=== PATIENT | female | born 1990 | race Caucasian/White ===

== ENCOUNTER → 2020-05-28 17:12 | Outpatient (BNVA) | payer BC, SELFPAY | PROVIDERS: Family Provider Nurse Practitioner Family; PCP Nurse Practitioner Family; Visit Provider Nurse Practitioner Family | DX: R53.83 Other fatigue (principal); Z13.6 Encounter for screening for cardiovascular disorders; Z79.899 Other long term (current) drug therapy | CPT/HCPCS: 80053; 80061; 82306; 82607; 83735; 84439; 84443; 84481; 85025 ==

== ENCOUNTER → 2021-01-31 11:52 | Outpatient (BNVA) | payer BC, SELFPAY | PROVIDERS: Family Provider Nurse Practitioner Family; PCP Nurse Practitioner Family; Visit Provider Nurse Practitioner Family | DX: J30.81 Allergic rhinitis due to animal (cat) (dog) hair and dander (principal); R42 Dizziness and giddiness; Z20.822 Contact with and (suspected) exposure to COVID-19 | CPT/HCPCS: 87635 ==

== ENCOUNTER → 2021-06-14 11:55 | Outpatient (BNVA) | payer BC, SELFPAY | PROVIDERS: Family Provider Nurse Practitioner Family; PCP Nurse Practitioner Family; Visit Provider Nurse Practitioner Family | DX: F41.9 Anxiety disorder, unspecified (principal); F32.A Depression, unspecified; Z13.6 Encounter for screening for cardiovascular disorders; Z68.42 Body mass index [BMI] 45.0-49.9, adult | CPT/HCPCS: 80053; 80061; 82306; 82607; 84443; 85025 ==

== ENCOUNTER → 2021-11-13 16:44 | Outpatient (BNVA) | payer BC, SELFPAY | PROVIDERS: Family Provider Nurse Practitioner Family; PCP Nurse Practitioner Family; Visit Provider Nurse Practitioner Family | DX: F41.9 Anxiety disorder, unspecified (principal); F32.A Depression, unspecified; R42 Dizziness and giddiness; E55.9 Vitamin D deficiency, unspecified | CPT/HCPCS: 80053; 82306; 82607; 83036; 83735; 84439; 84443; 85025 ==

== ENCOUNTER → 2022-07-28 09:53 | Outpatient (BNVA) | payer BC, MEDICAID, SELFPAY | PROVIDERS: Family Provider Nurse Practitioner Family; PCP Nurse Practitioner Family; Visit Provider Nurse Practitioner Family | DX: F41.9 Anxiety disorder, unspecified (principal); F32.A Depression, unspecified; Z13.6 Encounter for screening for cardiovascular disorders; Z71.3 Dietary counseling and surveillance; E55.9 Vitamin D deficiency, unspecified | CPT/HCPCS: 80053; 80061; 82306; 82607; 83036; 84443; 85025 ==

== ENCOUNTER → 2023-01-14 16:25 | Outpatient (BNVA) | payer BC, MEDICAID, SELFPAY | PROVIDERS: Family Provider Nurse Practitioner Family; PCP Nurse Practitioner Family; Visit Provider Nurse Practitioner Family | DX: N39.0 Urinary tract infection, site not specified (principal) | CPT/HCPCS: 81000; 81003; 87086 ==

== ENCOUNTER → 2023-01-27 14:14 | Outpatient (BNVA) | payer BC, MEDICAID, SELFPAY | PROVIDERS: Family Provider Nurse Practitioner Family; PCP Nurse Practitioner Family; Visit Provider Nurse Practitioner Family | DX: R42 Dizziness and giddiness (principal); F41.9 Anxiety disorder, unspecified; F32.A Depression, unspecified | CPT/HCPCS: 80053; 81000 ==

== ENCOUNTER → 2023-04-07 16:31 | Outpatient (BNVA) | payer BC, MEDICAID, SELFPAY | PROVIDERS: Family Provider Nurse Practitioner Family; PCP Nurse Practitioner Family; Visit Provider Nurse Practitioner Family | DX: N93.9 Abnormal uterine and vaginal bleeding, unspecified (principal); E55.9 Vitamin D deficiency, unspecified; F32.A Depression, unspecified; F41.9 Anxiety disorder, unspecified; R10.2 Pelvic and perineal pain | CPT/HCPCS: 80053; 81003; 81025; 82306; 82607; 82670; 83001; 83002; 84144; 84146; 84443; 85025 ==

== ENCOUNTER 2023-04-15 09:23 | Outpatient (CLI) | payer BC, MEDICAID, SELFPAY ==
--- NOTE | 2023-04-15 09:15 | US_ITS ---
WS: [id number] US pelv w/transvag [id number] HISTORY: R10.2 - Pelvic and perineal pain COMPARISON: None available. Uterus: 9.8 cm x 6.2 cm x 4.9 cm. Normal size anteverted uterus. No fibroid or mass. Endometrium: 0.7 cm. Normal homogeneity. Right ovary: 2.4 cm x 1.6 cm x 2.7 cm. Normal size and limited vascularity, no cystic or solid masses . Vascularity is limited secondary to position of the ovary. Left ovary: 2.6 cm x 1.9 cm x 2.6 cm. Normal size and limited vascularity, no cystic or solid masses. Vascularity is limited secondary to position of the ovary. No free fluid in the cul-de-sac. IMPRESSION: Normal transvaginal and transabdominal pelvic ultrasound.
== END 2023-04-15 09:24 | disposition home or self-care (01) ==
PROVIDERS: PCP Nurse Practitioner Family; Visit Provider Nurse Practitioner Family
DX: R10.2 Pelvic and perineal pain (principal)
CPT/HCPCS: 76830; 76856

== ENCOUNTER 2023-05-28 15:57 | Outpatient (CLI) | payer BC, MEDICAID, SELFPAY ==
--- NOTE | 2023-05-28 16:00 | MR_ITS ---
WS: [id number] MRI BRAIN WITH AND WITHOUT CONTRAST HISTORY: G43.909 - Migraine, unspecified, not intractable, without... COMPARISON: None available. TECHNIQUE: Multiplanar imaging performed through the brain with MultiHance ml's IV. No acute infarcts are seen. Staples-white matter differentiation is well preserved. No susceptibility artifacts or prior lacunar infarcts. Ventricles and extra-axial spaces are normal. Clivus and pituitary gland are normal. Visualized posterior fossa and brainstem are also normal. Postcontrast images are negative for masses or vascular malformations. Dural venous sinuses are normal. Paranasal sinuses: Well aerated with no significant disease. Mastoid air cells: Normal. Calvarium and scalp: Normal. IMPRESSION: 1. Normal MRI brain with contrast. 2. No prior infarcts or ischemia. No enhancing masses or vascular malformations.
[2023-05-28] MEDS: gadobenate dimeglumine 20 mL vial IV (16:52)
== END 2023-05-28 15:58 | disposition home or self-care (01) ==
PROVIDERS: PCP Nurse Practitioner Family; Visit Provider Nurse Practitioner Family
DX: G43.909 Migraine, unspecified, not intractable, without status migrainosus (principal); R20.2 Paresthesia of skin
CPT/HCPCS: 70553; A9577

== ENCOUNTER 2024-01-18 12:41 | Emergency (ER) | payer BC, MEDICAID, SELFPAY ==
[2024-01-18 13:36] VITALS: BP 148/91; PULSE 73; RESP 16; TEMP 36.7; O2SAT 98
--- NOTE | 2024-01-18 13:43 | ECG_ITS ---
[facility] Test Date: 2024-01-18 Pat Name: Michelle Howard Department: Room: Gender: Female Staffing Branch Manager: : 1990 Requested By: Fay Muhammad Order Number: [id number] Potts MD: Chip Belcher M.D. Measurements Intervals [place] Rate: 67 P: 46 WA: 184 QRS: 12 QRSD: 101 T: 23 QT: 415 QTc: 440 Interpretive Statements SINUS RHYTHM INCOMPLETE RIGHT BUNDLE BRANCH BLOCK [90+ ms QRS DURATION, TERMINAL R IN V1/V2, 40+ ms S IN I/aVL/V4/V5/V6] No previous ECG available for comparison Electronically Signed On 01-18-2024 14:35:20 CDT by Chip Belcher M.D. [id number]
[2024-01-18 14:11] LABS: Basophils % 0.7 %; Eosinophils # 0.1 10^3/uL (0.0-0.8); Eosinophils % 2.1 %; Hematocrit 34.5 % (36-47); Lymphocytes # 2.2 10^3/uL (0.8-4.8); Lymphocytes % 39.1 %; Mean Corpuscular Hemoglobin 26.8 pg (27-33); Mean Corpuscular Volume 86.5 fl (85-98); Mean Platelet Volume 9.9 fL (7.4-10.4); Monocytes # 0.3 10^3/uL (0.2-0.9); Monocytes % 5.1 %; Neutrophils # 2.98 10^3/uL (1.8-7.7); Neutrophils % 52.8 %; Nucleated Red Blood Cells % 0 %; Platelet Count 239 10^3/cmm (157-399); Red Blood Count 3.99 10^6/uL (3.85-5.65); Red Cell Distribution Width 14.8 % (12.1-15.1); White Blood Count 5.65 10^3/uL (3.29-11.43)
[2024-01-18 14:27] VITALS: BP 127/78; PULSE 69; RESP 16; TEMP 36.7; O2SAT 98
[2024-01-18 14:32] LABS: HCG, Serum Qual Negative (Negative)
[2024-01-18 14:34] LABS: Alanine Aminotransferase 21 U/L (0-33); Alkaline Phosphatase 71 U/L (35-105); Aspartate Amino Transferase 23 U/L (0-32); Blood Urea Nitrogen 11 mg/dL (6-20); Calcium 9.2 mg/dL (8.5-10.5); Carbon Dioxide 26 mmol/L (22-29); Chloride 101 mmol/L (98-107); Creatinine Clr Calc Pharmacy 168.9793; Globulin 3.5 g/dL (1.3-4.6); Glomerular Filtration Rate 96.4 mL/min (90-130); Glucose 106 mg/dL (65-115); Osmolality Calculated 284 mOsm/kg (285-295); Sodium 137 mmol/L (136-145); Total Bilirubin 0.3 mg/dL (0.15-1.2); Total Protein 7.5 g/dL (6.6-8.7)
[2024-01-18 14:35] LABS: Anion Gap 14.3 (5-19); Potassium 4.3 mmol/L (3.5-5.1)
[2024-01-18 16:30] VITALS: BP 141/78; PULSE 64; O2SAT 100
--- NOTE | 2024-01-18 16:36 | ED_ITS ---
HPI - Dizziness 2 General: Chief Complaint: Dizziness Stated Complaint: dizzy, light headed, headache Time Seen by Provider: 01/18/24 16:27 Source: patient Mode of arrival: ambulatory Limitations: no limitations History of Present Illness: HPI Narrative: 33-year-old female states that she been having some bilateral ear pain mainly the left ear over the last 2 weeks she just finished an antibiotic states that she is also had dizziness and headaches for the last 2 years states that today she had a period of some dizziness felt like the room spinning states typically goes away with a nap but had not today. States her headache is mild in nature she had an MRI last May for this that was negative she denies any vomiting denies any worsening proving factors Associated symptoms: Reports headache(s); Denies chest pain, chills, nausea or vomiting Review of Systems 2 Const: Denies: fever(s), chills, body aches or change in appetite Eyes: Denies: blurry vision or eye discomfort ENMT: Denies: throat pain or dental pain Card: Denies: chest pain Resp: Denies: dyspnea GI: Denies: abdominal pain, nausea, vomiting or diarrhea Musc: Denies: neck pain or back pain Skin/Breast: Denies: rash Neuro: Reports: headache(s) and dizziness PFSH ED 2 PFSH: Medical History Anxiety and depression Asthma Surgical History Hx of cholecystectomy Hx of colonoscopy Hx of wisdom tooth extraction Family History Father Diabetes CAD (coronary artery disease) Mother AAA (abdominal aortic aneurysm) Social History Smoking and tobacco/nicotine status: never used tobacco/nicotine Second hand smoke exposure: No Alcohol intake: never Substance/Drug Use: unknown Adopted: No Caregiver/support person: No Lives independently: Yes Household members: spouse and children Marital status: service: No Current occupational status: employed and unemployed Current occupation: [employer] Do you think of yourself as: Straight/Heterosexual Current gender identity: Female Physical Exam 2 Const: COMMON NORMALS: no acute distress, patient oriented x3 and healthy appearing HENMT: COMMON NORMALS: normocephalic and atraumatic HEAD & SCALP: n ormocephalic and atraumatic Eye: COMMON NORMALS: Equal, round and reactive pupils present and EOMs intact bilaterally PUPIL: Yes Equal, round and reactive pupils present OTHER: No nystagmus looking straight ahead or when she looks right or left Neck/C-Spine: COMMON NORMALS: full ROM and supple Chest: COMMONS NORMALS: normal inspection of the chest Resp: COMMON NORMALS: normal respiratory effort, No retractions, No use of accessory muscles and clear to auscultation bilaterally AUSCULTATION: clear to auscultation bilaterally Cardio: COMMON NORMALS: regular rate, regular rhythm and No murmurs present (Cardio) RATE: regular rate RHYTHM: regular rhythm Extremity: COMMON NORMALS: normal to inspection and full ROM Neuro: COMMON NORMALS: patient oriented x3, moves all extremities and no focal motor deficits Psych: COMMON NORMALS: mental status grossly normal, Normal thought process present and cooperative THOUGHT PROCESS: Normal thought process present Skin: COMMON NORMALS: no rashes or lesions noted and no wounds GENERAL SKIN EXAM: no rashes or lesions noted Course 2 Vital Signs: Vital signs: Vital Signs Temperature 98.1 F 01/18/24 14:27 Pulse Rate 64 01/18/24 16:30 Respiratory Rate 16 01/18/24 14:27 Blood Pressure 141/78 01/18/24 16:30 Pulse Oximetry 100 01/18/24 16:30 Oxygen Delivery Me thod Room Air 01/18/24 16:30 MDM - Dizziness Medical Decision Making Patient presents with headache along with dizziness been acute on chronic she is well-appearing here she feels much improved after Toradol and meclizine she is able to ambulate without difficulty she has no signs of a stroke we will prescribe her meclizine for home she is follow-up with PCP she is return if worsening she understands agrees to plan. Lab Data 01/18/24 13:39 01/18/24 13:39 Laboratory Results WBC 5.65 10^3/uL (3.29-11.43) 01/18/24 13:39 RBC 3.99 10^6/uL (3.85-5.65) 01/18/24 13:39 Hgb 10.70 g/dL (11.27-16.99) L 01/18/24 13:39 Hct 34.5 % (36-47) L 01/18/24 13:39 MCV 86.5 fl (85-98) 01/18/24 13:39 MCH 26.8 pg (27-33) L 01/18/24 13:39 MCHC 31.0 g/dL (30-55) 01/18/24 13:39 RDW 14.8 % (12.1-15.1) 01/18/24 13:39 Plt Count 239 10^3/cmm (157-399) 01/18/24 13:39 MPV 9.9 fL (7.4-10.4) 01/18/24 13:39 Neut % (Auto) 52.8 % 01/18/24 13:39 Lymph % (Auto) 39.1 % 01/18/24 13:39 Bullitt % (Auto) 5.1 % 01/18/24 13:39 Eos % (Auto) 2.1 % 01/18/24 13:39 Baso % (Auto) 0.7 % 01/18/24 13:39 Neut # (Auto) 2.98 10^3/uL (1.8-7.7) 01/18/24 13:39 Lymph # (Auto) 2.2 10^3/uL (0.8-4.8) 01/18/24 13:39 Bullitt # (Auto) 0.3 10^3/uL (0.2-0.9) 01/18/24 13:39 Eos # (Auto) 0.1 10^3/uL (0.0-0.8) 01/18/24 13:39 Baso # (Auto) 0.0 10^3/uL (0.0-0.1) 01/18/24 13:39 Nucleated RBC % (auto) 0 % 01/18/24 13:39 Nucleated RBCs # 0.0 /100WBC 01/18/24 13:39 Sodium 137 mmol/L (136-145) 01/18/24 13:39 Potassium 4.3 mmol/L (3.5-5.1) 01/18/24 13:39 Chloride 101 mmol/L (98-107) 01/18/24 13:39 Carbon Dioxide 26 mmol/L (22-29) 01/18/24 13:39 Anion Gap 14.3 (5-19) 01/18/24 13:39 BUN 11 mg/dL (6-20) 01/18/24 13:39 Creatinine 0.7 mg/dL (0.5-0.9) 01/18/24 13:39 GFR Calculation 96.4 mL/min (90-130) 01/18/24 13:39 Glucose 106 mg/dL (65-115) 01/18/24 13:39 Calculated Osmolality 284 mOsm/kg (285-295) L 01/18/24 13:39 Calcium 9.2 mg/dL (8.5-10.5) 01/18/24 13:39 Total Bilirubin 0.3 mg/dL (0.15-1.2) 01/18/24 13:39 AST 23 U/L (0-32) 01/18/24 13:39 ALT 21 U/L (0-33) 01/18/24 13:39 Alkaline Phosphatase 71 U/L (35-105) 01/18/24 13:39 Total Protein 7.5 g/dL (6.6-8.7) 01/18/24 13:39 Albumin 4.0 g/dL (3.5-5.2) 01/18/24 13:39 Globulin 3.5 g/dL (1.3-4.6) 01/18/24 13:39 HCG, Qual Negative (Negative) 01/18/24 13:39 No radiology studies performed this visit Discharge Plan Discharge Patient Disposition: Home Clinical Impression: Dizziness, Headache Condition: Stable Prescriptions: New meclizine 50 mg tablet 50 mg PO BID PRN (Reason: dizziness) Qty: 20 0RF No Action aripiprazole [Abilify] 2 mg tablet 2 mg PO DAILY Qty: 30 0RF cefdinir 300 mg capsule 300 mg PO BID 10 Days Qty: 20 0RF cholecalciferol (vitamin D3) 1,250 mcg (50,000 unit) capsule 50,000 unit PO .weekly Qty: 4 2RF escitalopram oxalate 20 mg tablet See Rx Instructions .ROUTE .COMPLEX Qty: 30 5RF Dose Instruction: Take 1 tablet by mouth once daily Rx Instructions: Take 1 tablet by mouth once daily Discharge Orders: Discharge ED (Routine); Ordered 01/18/24 Ordered By: Pau Goldman Referrals: Linda Ugarte FNP [Primary Care Provider] - 4-7 days Discharge Diet: Advance as tolerated Discharge Activity: Resume usual activity Patient Instructions: Dizziness (ED), General Headache (ED) Coding Level of Care Code ED Transport Technician for Dalia Culver
[2024-01-18] MEDS: meclizine 25 mg tablet 50 MG PO (16:57)
[2024-01-18] MEDS: sodium chloride 0.9% 1,000 ML 999 ML IV (16:57)
[2024-01-18] MEDS: ketorolac 30 mg/mL INJ IVP (16:58)
[2024-01-18 18:02] VITALS: BP 121/79; PULSE 61; O2SAT 100
== END 2024-01-18 18:03 | disposition home or self-care (01) ==
PROVIDERS: Emergency Provider Emergency Medicine; PCP Nurse Practitioner Family
DX: R42 Dizziness and giddiness (principal); R51.9 Headache, unspecified
CPT/HCPCS: 36415; 80053; 84703; 85025; 93005; 96374; 99284; J1885; J7030; J8597

== ENCOUNTER → 2024-01-20 09:19 | Outpatient (BNVA) | payer BC, MEDICAID, SELFPAY | PROVIDERS: PCP Nurse Practitioner Family; Visit Provider Nurse Practitioner Family | DX: R00.2 Palpitations (principal); R42 Dizziness and giddiness; Z13.6 Encounter for screening for cardiovascular disorders; E55.9 Vitamin D deficiency, unspecified | CPT/HCPCS: 80061; 82306; 83036; 83735; 84443; 86003; 86008 ==

== ENCOUNTER → 2024-02-15 15:52 | Outpatient (BNVA) | payer BC, MEDICAID, SELFPAY | PROVIDERS: PCP Nurse Practitioner Family; Visit Provider Nurse Practitioner Family | DX: R30.0 Dysuria (principal) | CPT/HCPCS: 81000 ==

== ENCOUNTER → 2024-10-20 13:02 | Outpatient (BNVA) | payer BC, MEDICAID, SELFPAY | PROVIDERS: PCP Nurse Practitioner Family; Visit Provider Nurse Practitioner Family | DX: E55.9 Vitamin D deficiency, unspecified (principal); R73.9 Hyperglycemia, unspecified; G43.909 Migraine, unspecified, not intractable, without status migrainosus | CPT/HCPCS: 80053; 82306; 82607; 83036; 83735; 84443; 85025 ==

== ENCOUNTER 2024-10-31 07:03 | Outpatient (CLI) | payer BC, MEDICAID, SELFPAY ==
--- NOTE | 2024-10-31 07:15 | US_ITS ---
WS: [id number] Exam: US abdomen complete* [id number] Date/Time of Exam: 10/31/2024 7:27 AM Reason For Exam: R10.9 - Unspecified abdominal pain There is mild hepatic enlargement. The liver measures near 20 cm at greatest dimension. No intrahepatic ductal dilatation. No hepatic masses are identified. There is increased echogenicity of the liver likely representing hepatic steatosis. The common bile duct is not dilated and measures 5 mm in greatest diameter. The IVC is patent. The abdominal aorta is normal in caliber and measures 1.8 cm in greatest diameter. The spleen is unremarkable. Unremarkable bilateral kidneys. The RIGHT kidney measures 11.1 x 4.6 x 4.5 cm. The LEFT kidney measures 10.2 x 5.3 both 5.1 cm. No mass or free fluid in the abdomen. The pancreas is unremarkable as visualized. The gallbladder surgically absent. US/US abdomen complete* [id number] IMPRESSION: 1. Mildly enlarged fatty liver. 2. No mass, ascites or other significant finding in the abdomen. 3. Surgically absent gallbladder.
== END 2024-10-31 07:04 | disposition home or self-care (01) ==
PROVIDERS: PCP Nurse Practitioner Family; Visit Provider Nurse Practitioner Family
DX: R16.0 Hepatomegaly, not elsewhere classified (principal); Z90.49 Acquired absence of other specified parts of digestive tract; R93.2 Abnormal findings on diagnostic imaging of liver and biliary tract
CPT/HCPCS: 76700

== ENCOUNTER → 2024-12-12 14:25 | Outpatient (BNVA) | payer BC, MEDICAID, SELFPAY | PROVIDERS: PCP Nurse Practitioner Family; Visit Provider Nurse Practitioner Family | DX: R39.9 Unspecified symptoms and signs involving the genitourinary system (principal); B37.31 Acute candidiasis of vulva and vagina | CPT/HCPCS: 81000; 87086 ==